=== PATIENT | male | born 1935 | race Caucasian/White ===

== ENCOUNTER 2017-06-14 12:55 | Outpatient (CLI) | payer MEDICARE, BC | END 2017-06-14 23:59 | disposition home or self-care (01) | LOC: WOU 12:55 | PROVIDERS: ATTEND Podiatrist Foot & Ankle Surgery | DX: B35.1 Tinea unguium (principal); E11.620 Type 2 diabetes mellitus with diabetic dermatitis; Z79.84 Long term (current) use of oral hypoglycemic drugs; E66.01 Morbid (severe) obesity due to excess calories; Z68.41 Body mass index [BMI] 40.0-44.9, adult; Z71.3 Dietary counseling and surveillance; F03.90 Unspecified dementia, unspecified severity, without behavioral disturbance, psychotic disturbance, mood disturbance, and anxiety; R60.0 Localized edema; L60.3 Nail dystrophy | CPT/HCPCS: G0463 ==

== ENCOUNTER 2017-10-20 12:42 | Outpatient (CLI) | payer MEDICARE, BC | END 2017-10-20 23:59 | disposition home or self-care (01) | LOC: WOU 12:42 | PROVIDERS: ATTEND Podiatrist Foot & Ankle Surgery | DX: B35.1 Tinea unguium (principal); R60.0 Localized edema; E11.42 Type 2 diabetes mellitus with diabetic polyneuropathy; E66.9 Obesity, unspecified; Z68.39 Body mass index [BMI] 39.0-39.9, adult; B35.3 Tinea pedis; S90.415A Abrasion, left lesser toe(s), initial encounter; X58.XXXA Exposure to other specified factors, initial encounter; Y92.89 Other specified places as the place of occurrence of the external cause | CPT/HCPCS: G0463 ==

== ENCOUNTER 2018-01-10 10:30 | Outpatient (CLI) | payer MEDICARE, BC | END 2018-01-10 23:59 | disposition home or self-care (01) | LOC: WOU 10:30 | PROVIDERS: ATTEND Podiatrist Foot & Ankle Surgery | DX: B35.1 Tinea unguium (principal); E11.42 Type 2 diabetes mellitus with diabetic polyneuropathy; E11.65 Type 2 diabetes mellitus with hyperglycemia; E66.9 Obesity, unspecified; Z68.38 Body mass index [BMI] 38.0-38.9, adult; Z71.3 Dietary counseling and surveillance; L30.9 Dermatitis, unspecified; Z74.09 Other reduced mobility | CPT/HCPCS: 82962-TC; G0463 ==

== ENCOUNTER 2018-05-18 13:37 | Outpatient (CLI) | payer MEDICARE, BC | END 2018-05-18 23:59 | disposition home or self-care (01) | LOC: WOU 13:37 | PROVIDERS: ATTEND Podiatrist Foot & Ankle Surgery | DX: E11.42 Type 2 diabetes mellitus with diabetic polyneuropathy (principal); B35.1 Tinea unguium; B35.3 Tinea pedis; Z74.09 Other reduced mobility; R60.0 Localized edema | CPT/HCPCS: G0463; Z7610 ==

== ENCOUNTER 2018-07-20 13:00 | Outpatient (CLI) | payer MEDICARE, BC | END 2018-07-20 23:59 | disposition home or self-care (01) | LOC: EDBD 13:00 → WOU 13:00 | PROVIDERS: ATTEND Podiatrist Foot & Ankle Surgery | PROC: 0H9RXZZ Drainage of Toe Nail, External Approach (ICD-10-PCS; principal; 2018-07-20) | DX: S90.122A Contusion of left lesser toe(s) without damage to nail, initial encounter (principal); X58.XXXA Exposure to other specified factors, initial encounter; Y92.89 Other specified places as the place of occurrence of the external cause; B35.1 Tinea unguium; E11.9 Type 2 diabetes mellitus without complications | CPT/HCPCS: 11740; Z7610 ==

== ENCOUNTER 2018-09-26 14:01 | Outpatient (CLI) | payer MEDICARE, BC | END 2018-09-26 23:59 | disposition home or self-care (01) | LOC: WOU 14:01 | PROVIDERS: ATTEND Podiatrist Foot & Ankle Surgery | DX: B35.1 Tinea unguium (principal); E11.42 Type 2 diabetes mellitus with diabetic polyneuropathy; R60.0 Localized edema; Z74.09 Other reduced mobility | CPT/HCPCS: G0463; Z7610 ==

== ENCOUNTER 2018-12-07 11:55 | Outpatient (CLI) | payer MEDICARE, BC | END 2018-12-07 23:59 | disposition home or self-care (01) | LOC: WOU 11:55 | PROVIDERS: ATTEND Podiatrist Foot & Ankle Surgery | DX: B35.1 Tinea unguium (principal); E11.42 Type 2 diabetes mellitus with diabetic polyneuropathy; R60.0 Localized edema; Z74.09 Other reduced mobility | CPT/HCPCS: G0463 ==

== ENCOUNTER 2019-02-06 13:00 | Outpatient (CLI) | payer MEDICARE, BC | END 2019-02-06 23:59 | disposition home or self-care (01) | LOC: WOU 13:00 | PROVIDERS: ATTEND Podiatrist Foot & Ankle Surgery | DX: B35.1 Tinea unguium (principal); E11.42 Type 2 diabetes mellitus with diabetic polyneuropathy; R60.0 Localized edema; E66.01 Morbid (severe) obesity due to excess calories; Z68.41 Body mass index [BMI] 40.0-44.9, adult; F03.90 Unspecified dementia, unspecified severity, without behavioral disturbance, psychotic disturbance, mood disturbance, and anxiety; Z74.09 Other reduced mobility; E11.65 Type 2 diabetes mellitus with hyperglycemia | CPT/HCPCS: G0463 ==

== ENCOUNTER 2019-05-01 13:00 | Outpatient (CLI) | payer MEDICARE, BC | END 2019-05-01 23:59 | disposition home or self-care (01) | LOC: WOU 13:00 | PROVIDERS: ATTEND Podiatrist Foot & Ankle Surgery | DX: S81.811A Laceration without foreign body, right lower leg, initial encounter (principal); L03.115 Cellulitis of right lower limb; W45.8XXA Other foreign body or object entering through skin, initial encounter; Y93.89 Activity, other specified; Y92.89 Other specified places as the place of occurrence of the external cause; E11.42 Type 2 diabetes mellitus with diabetic polyneuropathy; B35.1 Tinea unguium; E11.65 Type 2 diabetes mellitus with hyperglycemia; E66.01 Morbid (severe) obesity due to excess calories; Z68.41 Body mass index [BMI] 40.0-44.9, adult; Z74.09 Other reduced mobility; F03.90 Unspecified dementia, unspecified severity, without behavioral disturbance, psychotic disturbance, mood disturbance, and anxiety | CPT/HCPCS: 11042; 87070; 87075; 87077; A6402 ==

== ENCOUNTER 2019-05-08 13:00 | Outpatient (CLI) | payer MEDICARE, BC | END 2019-05-08 23:59 | disposition home or self-care (01) | LOC: WOU 13:00 | PROVIDERS: ATTEND Podiatrist Foot & Ankle Surgery | DX: S81.811A Laceration without foreign body, right lower leg, initial encounter (principal); W45.8XXA Other foreign body or object entering through skin, initial encounter; L03.115 Cellulitis of right lower limb; E11.42 Type 2 diabetes mellitus with diabetic polyneuropathy; R60.0 Localized edema; E66.01 Morbid (severe) obesity due to excess calories; Z68.41 Body mass index [BMI] 40.0-44.9, adult; B35.1 Tinea unguium | CPT/HCPCS: 11042 ==

== ENCOUNTER 2019-05-15 13:00 | Outpatient (CLI) | payer MEDICARE, BC | END 2019-05-15 23:59 | disposition home or self-care (01) | LOC: WOU 13:00 | PROVIDERS: ATTEND Podiatrist Foot & Ankle Surgery | DX: L97.812 Non-pressure chronic ulcer of other part of right lower leg with fat layer exposed (principal); S80.811S Abrasion, right lower leg, sequela; W45.8XXS Other foreign body or object entering through skin, sequela; L03.115 Cellulitis of right lower limb; E11.42 Type 2 diabetes mellitus with diabetic polyneuropathy; R60.0 Localized edema | CPT/HCPCS: 11042 ==

== ENCOUNTER 2019-05-29 13:00 | Outpatient (CLI) | payer MEDICARE, BC | END 2019-05-29 23:59 | disposition home or self-care (01) | LOC: WOU 13:00 | PROVIDERS: ATTEND Podiatrist Foot & Ankle Surgery | DX: L97.812 Non-pressure chronic ulcer of other part of right lower leg with fat layer exposed (principal); S80.811S Abrasion, right lower leg, sequela; W45.8XXS Other foreign body or object entering through skin, sequela; L25.9 Unspecified contact dermatitis, unspecified cause; E11.42 Type 2 diabetes mellitus with diabetic polyneuropathy; R60.0 Localized edema; B35.3 Tinea pedis; B35.1 Tinea unguium; E11.65 Type 2 diabetes mellitus with hyperglycemia; L51.2 Toxic epidermal necrolysis [Lyell] | CPT/HCPCS: G0463 ==

== ENCOUNTER 2019-06-05 13:00 | Outpatient (CLI) | payer MEDICARE, BC | END 2019-06-05 23:59 | disposition home or self-care (01) | LOC: WOU 13:00 | PROVIDERS: ATTEND Podiatrist Foot & Ankle Surgery | DX: B35.3 Tinea pedis (principal); E11.620 Type 2 diabetes mellitus with diabetic dermatitis; B35.1 Tinea unguium | CPT/HCPCS: G0463 ==

== ENCOUNTER 2019-07-31 13:00 | Outpatient (CLI) | payer MEDICARE, BC | END 2019-07-31 23:59 | disposition home or self-care (01) | LOC: WOU 13:00 | PROVIDERS: ATTEND Podiatrist Foot & Ankle Surgery | DX: B35.1 Tinea unguium (principal); E11.42 Type 2 diabetes mellitus with diabetic polyneuropathy; L60.3 Nail dystrophy; E11.620 Type 2 diabetes mellitus with diabetic dermatitis | CPT/HCPCS: G0463 ==

== ENCOUNTER 2019-10-23 13:20 | Outpatient (CLI) | payer MEDICARE, BC | END 2019-10-23 23:59 | disposition home or self-care (01) | LOC: WOU 13:20 | PROVIDERS: ATTEND Podiatrist Foot & Ankle Surgery | DX: B35.1 Tinea unguium (principal); E11.42 Type 2 diabetes mellitus with diabetic polyneuropathy; R60.0 Localized edema; M62.84 Sarcopenia; E66.9 Obesity, unspecified; Z68.41 Body mass index [BMI] 40.0-44.9, adult; L60.0 Ingrowing nail | CPT/HCPCS: G0463 ==

== ENCOUNTER 2020-04-08 14:34 | Outpatient (CLI) | payer MEDICARE, BC | END 2020-04-08 23:59 | disposition home or self-care (01) | LOC: WOU 14:34 | PROVIDERS: ATTEND Podiatrist Foot & Ankle Surgery | DX: B35.1 Tinea unguium (principal); E11.42 Type 2 diabetes mellitus with diabetic polyneuropathy; E11.65 Type 2 diabetes mellitus with hyperglycemia; B35.3 Tinea pedis; L85.3 Xerosis cutis; E66.9 Obesity, unspecified; Z68.41 Body mass index [BMI] 40.0-44.9, adult | CPT/HCPCS: G0463 ==

== ENCOUNTER 2020-07-08 13:30 | Outpatient (CLI) | payer MEDICARE, BC | END 2020-07-08 23:59 | disposition home or self-care (01) | LOC: WOU 13:30 | PROVIDERS: ATTEND Podiatrist Foot & Ankle Surgery | DX: B35.1 Tinea unguium (principal); L85.3 Xerosis cutis; E11.42 Type 2 diabetes mellitus with diabetic polyneuropathy; E11.65 Type 2 diabetes mellitus with hyperglycemia; B35.3 Tinea pedis; E66.9 Obesity, unspecified; Z68.41 Body mass index [BMI] 40.0-44.9, adult; R60.0 Localized edema | CPT/HCPCS: G0463 ==

== ENCOUNTER 2020-12-11 11:00 | Outpatient (CLI) | payer MEDICARE, BC | END 2020-12-11 23:59 | disposition home or self-care (01) | LOC: WOU 11:00 | PROVIDERS: ATTEND Podiatrist Foot & Ankle Surgery | DX: E11.42 Type 2 diabetes mellitus with diabetic polyneuropathy (principal); E11.65 Type 2 diabetes mellitus with hyperglycemia; B35.1 Tinea unguium; B35.3 Tinea pedis; L85.3 Xerosis cutis; E66.9 Obesity, unspecified; Z68.41 Body mass index [BMI] 40.0-44.9, adult; R60.9 Edema, unspecified | CPT/HCPCS: G0463 ==

== ENCOUNTER 2021-03-24 14:00 | Outpatient (CLI) | payer MEDICARE, BC | END 2021-03-24 23:59 | disposition home or self-care (01) | LOC: WOU 14:00 | PROVIDERS: ATTEND Podiatrist Foot & Ankle Surgery | DX: B35.1 Tinea unguium (principal); B35.3 Tinea pedis; L60.2 Onychogryphosis; E11.42 Type 2 diabetes mellitus with diabetic polyneuropathy; E66.01 Morbid (severe) obesity due to excess calories; M79.672 Pain in left foot; M79.671 Pain in right foot | CPT/HCPCS: G0463 ==

== ENCOUNTER 2021-07-14 13:10 | Outpatient (CLI) | payer MEDICARE, BC ==
[2021-07-14] MEDS ORDERED: BACI/NEOM/POLY B OINT PKT 1 UDPKT PACKET ONE (13:39)
== END 2021-07-14 23:59 | disposition home or self-care (01) ==
LOC: WOU 13:10
PROVIDERS: ATTEND Podiatrist Foot & Ankle Surgery
DX: B35.1 Tinea unguium (principal); B35.3 Tinea pedis; L60.2 Onychogryphosis; E11.42 Type 2 diabetes mellitus with diabetic polyneuropathy; E66.01 Morbid (severe) obesity due to excess calories; Z68.41 Body mass index [BMI] 40.0-44.9, adult; M79.672 Pain in left foot; M79.671 Pain in right foot
CPT/HCPCS: G0463

== ENCOUNTER 2021-10-27 14:15 | Outpatient (CLI) | payer MEDICARE, BC ==
[2021-10-27] MEDS ORDERED: MUPIROCIN 2% CREAM 15 GM TUBE TP ONE (14:37)
== END 2021-10-27 23:59 | disposition home or self-care (01) ==
LOC: WOU 14:15
PROVIDERS: ATTEND Podiatrist Foot & Ankle Surgery
DX: E11.621 Type 2 diabetes mellitus with foot ulcer (principal); L97.518 Non-pressure chronic ulcer of other part of right foot with other specified severity; E11.42 Type 2 diabetes mellitus with diabetic polyneuropathy; B35.1 Tinea unguium; L60.2 Onychogryphosis; B35.3 Tinea pedis; M79.672 Pain in left foot; M79.671 Pain in right foot; E66.01 Morbid (severe) obesity due to excess calories; Z68.41 Body mass index [BMI] 40.0-44.9, adult
CPT/HCPCS: 11042

== ENCOUNTER 2021-11-03 13:45 | Outpatient (CLI) | payer MEDICARE, BC ==
[2021-11-03] MEDS ORDERED: MUPIROCIN 2% CREAM 15 GM TUBE TP ONE (14:19)
== END 2021-11-03 23:59 | disposition home or self-care (01) ==
LOC: WOU 13:45
PROVIDERS: ATTEND Podiatrist Foot & Ankle Surgery
DX: E11.621 Type 2 diabetes mellitus with foot ulcer (principal); L97.518 Non-pressure chronic ulcer of other part of right foot with other specified severity; E11.42 Type 2 diabetes mellitus with diabetic polyneuropathy; B35.1 Tinea unguium; L60.2 Onychogryphosis; B35.3 Tinea pedis; E66.01 Morbid (severe) obesity due to excess calories; Z68.41 Body mass index [BMI] 40.0-44.9, adult
CPT/HCPCS: 11042

== ENCOUNTER 2021-11-17 13:35 | Outpatient (CLI) | payer MEDICARE, BC | END 2021-11-17 23:59 | disposition home or self-care (01) | LOC: WOU 13:35 | PROVIDERS: ATTEND Podiatrist Foot & Ankle Surgery | DX: E11.42 Type 2 diabetes mellitus with diabetic polyneuropathy (principal); B35.1 Tinea unguium; L60.2 Onychogryphosis; B35.3 Tinea pedis; E66.01 Morbid (severe) obesity due to excess calories; Z68.41 Body mass index [BMI] 40.0-44.9, adult | CPT/HCPCS: G0463 ==

== ENCOUNTER 2022-02-16 14:00 | Outpatient (CLI) | payer MEDICARE, BC ==
[2022-02-16] MEDS ORDERED: CLOTRIMAZOLE 1% 15 GM TUBE TP ONE (14:27)
== END 2022-02-16 23:59 | disposition home or self-care (01) ==
LOC: WOU 14:00
PROVIDERS: ATTEND Podiatrist Foot & Ankle Surgery
DX: B35.1 Tinea unguium (principal); L60.2 Onychogryphosis; E11.42 Type 2 diabetes mellitus with diabetic polyneuropathy; B35.3 Tinea pedis; E66.01 Morbid (severe) obesity due to excess calories; Z68.41 Body mass index [BMI] 40.0-44.9, adult; Z79.84 Long term (current) use of oral hypoglycemic drugs
CPT/HCPCS: G0463

== ENCOUNTER 2022-07-13 13:05 | Outpatient (CLI) | payer MEDICARE, BC | END 2022-07-13 23:59 | disposition home or self-care (01) | LOC: WOU 13:05 | PROVIDERS: ATTEND Podiatrist Foot & Ankle Surgery | DX: B35.1 Tinea unguium (principal); L60.2 Onychogryphosis; E11.42 Type 2 diabetes mellitus with diabetic polyneuropathy; Z79.84 Long term (current) use of oral hypoglycemic drugs; I87.2 Venous insufficiency (chronic) (peripheral); I83.92 Asymptomatic varicose veins of left lower extremity; B35.3 Tinea pedis; E66.01 Morbid (severe) obesity due to excess calories; Z68.41 Body mass index [BMI] 40.0-44.9, adult | CPT/HCPCS: G0463 ==

== ENCOUNTER 2022-12-21 15:20 | Outpatient (CLI) | payer MEDICARE, BC | END 2022-12-21 23:59 | disposition home or self-care (01) | LOC: WOU 15:20 | PROVIDERS: ATTEND Podiatrist Foot & Ankle Surgery | DX: B35.1 Tinea unguium (principal); E11.42 Type 2 diabetes mellitus with diabetic polyneuropathy; Z79.84 Long term (current) use of oral hypoglycemic drugs; I87.2 Venous insufficiency (chronic) (peripheral); E66.01 Morbid (severe) obesity due to excess calories; Z68.41 Body mass index [BMI] 40.0-44.9, adult; R60.0 Localized edema; L60.2 Onychogryphosis; B35.3 Tinea pedis | CPT/HCPCS: G0463 ==